=== PATIENT | male | born 1995 | race Caucasian/White ===

== ENCOUNTER 2020-12-11 22:09 | Emergency (ER) | payer OTHER ==
[~2020-12-11] VITALS: Ht 185.4 cm; Wt 63.5 kg
--- NOTE | 2020-12-11 22:39 | NUR ---
Patient discharged back to [facility] living with staff member in stable condition. Written and verbal after care instructions given. Patient verbalizes understanding of instructions. Stressed follow up or return to ER for worsening s/s.
[2020-12-11 23:00] VITALS: BP 130/77
== END 2020-12-11 22:40 | disposition home or self-care (01) ==
LOC: ER 22:22
DX: Z00.8 Encounter for other general examination (principal); F19.10 Other psychoactive substance abuse, uncomplicated
CPT/HCPCS: A4663